=== PATIENT | female | born 1995 | race Hispanic/Latino ===

== ENCOUNTER 2021-02-11 13:27 | Emergency (ER) | payer SELFPAY ==
[2021-02-11 14:04] LABS: BHCG - Serum POSITIVE (NEGATIVE); Pregs Control Background? CLEAR/WHITE (CLR/WHITE); Pregs Control Bar Appear? YES (CONTROL BAR)
[2021-02-11 14:06] LABS: #Basophils 0.1 thou/uL (0.0-0.2); #Eosinphils 0.1 thou/uL (0.0-0.7); #Lymphocytes 2.7 thou/uL (1.20-3.40); #Monocytes 0.6 thou/uL (0.11-0.59); #Neutrophils 7.8 thou/uL (1.40-6.50); %Eosinophils 0.6 % (0.0-10.0); %Lymphocytes 23.8 % (21.0-51.0); %Monocytes 5.5 % (0.0-10.0); %Neutrophils 69.1 % (42.0-75.0); Hemoglobin 12.9 g/dL (12.0-16.0); Mean Corpuscular HGB CONC 34.7 g/dL (32.0-36.0); Mean Corpuscular Volume 92.1 fL (78.0-98.0); Mean Platelet Volume 7.8 fL (7.4-10.4); Platelet Count 293 thou/uL (130-400); RBC Distribution Width 12.3 % (11.5-14.5); Red Blood Cell (RBC) Count 4.02 mill/uL (4.20-5.40); White Blood Cell (WBC) Count 11.2 thou/uL (4.8-10.8)
[2021-02-11 14:35] LABS: ALT (SGPT) 18 U/L (8-55); AST (SGOT) 17 U/L (5-34); Albumin 3.7 g/dL (3.5-5.0); Alkaline Phosphatase 47 U/L (40-110); Anion Gap 14 mmol/L (10-20); BUN (Urea Nitrogen) 8 mg/dL (7.0-18.7); Bilirubin, Total 0.2 mg/dL (0.2-1.2); Calc. Creatinine Clearance 0 mL/min (70-130); Calcium 8.7 mg/dL (7.8-10.44); Carbon Dioxide 20 mmol/L (22-29); Chloride 107 mmol/L (98-107); Globulin 3.2 g/dL (2.4-3.5); Glucose 151 mg/dL (70-105); Potassium 3.5 mmol/L (3.5-5.1); Protein, Total 6.9 g/dL (6.0-8.3); Sodium 137 mmol/L (136-145)
[2021-02-11 17:28] LABS: Bilirubin Negative (Negative); Blood, Urine Negative (Negative); Clarity Turbid (Clear); Glucose, Urine (Dipstick) Normal (Negative); Ketone, Urine Negative (Negative); Leukocyte Negative Leu/uL (Negative); Nitrite Negative (Negative); Protein, Urine (Dipstick) 10 mg/dL (Neg-Trace); Specific Gravity, Urine 1.027 (1.002-1.036); Urobilinogen Normal mg/dL (Less than 2); pH, Urine 6.5 (5.0-9.0)
== END 2021-02-11 17:23 | disposition left against medical advice (07) ==
LOC: ERS 13:27
DX: O20.9 Hemorrhage in early pregnancy, unspecified (principal); Z3A.08 8 weeks gestation of pregnancy
CPT/HCPCS: 36415; 76856; 80053; 81003; 84702; 84703; 85025; 86900; 86901